=== PATIENT | female | born 1985 | race Caucasian/White ===

== ENCOUNTER 2017-06-26 09:14 | Observation (INO) | payer MEDICAID ==
[~2017-06-26] VITALS: Ht 157.5 cm; Wt 72.7 kg
[~2017-06-26 09:14] MED LIST: ALPR-475 PO; CLON0.5T PO; HYDR200T PO; HYDR2TAB29 PO; MYCO500T3 PO; OMEP-110 PO; ONDA4TAB10 PO; OSTEO BI-FLEX1 EAC1 PO; OXYC10TA6 PO; PRED10TA14 PO; PREG225C PO; PROP20TA PO; TRAM50TA2 PO; TRAZ100T15 PO; flexeril PO
[2017-06-26] MEDS ORDERED: SODIUM CHLORIDE 0.9% 1,000 ML IV ONE (09:56)
[2017-06-26] MEDS ORDERED: SODIUM CHLORIDE FLUSH 10ML SYR IVF ONE (10:00)
[2017-06-26] MEDS ORDERED: ONDANSETRON 2MG/ML, 2ML IVPush ONE (10:00)
[2017-06-26] MEDS ORDERED: HYDROmorphone 2 MG/ML, 1ML ONE ×2 (10:10→13:04)
[2017-06-26] MEDS ORDERED: ONDANSETRON 2MG/ML, 2ML ONE (10:11)
[2017-06-26 10:25] LABS: BASOPHILS # (AUTO) 0.02 x10^3/uL (0-0.1); BASOPHILS % (AUTO) 0 % (0-1); EOSINOPHILS # (AUTO) 0.08 x10^3/uL (0-0.4); EOSINOPHILS % (AUTO) 1 % (1-7); HCT (SEDRATE) 39.7 % (34.6-47.8); LYMPHOCYTES % (AUTO) 21 % (22-44); MD NO; MEAN CORPUSCULAR HEMOGLOBIN 30.2 pg (27.0-34.8); MEAN CORPUSCULAR HGB CONC 33.7 g/dL (32.4-35.8); MEAN CORPUSCULAR VOLUME 89.5 fL (80-100); MEAN PLATELET VOLUME 7.8 fL (7.4-10.4); MONOCYTES # (AUTO) 0.35 x10^3/uL (0.2-0.8); MONOCYTES % (AUTO) 5 % (2-9); NEUTROPHILS # (AUTO) 5.21 x10^3/uL (1.8-6.8); NEUTROPHILS % (AUTO) 73 % (42-75); PLATELET COUNT 415 x10^3/uL (130-400); RED BLOOD COUNT 4.44 x10^6/uL (3.82-5.3); RED CELL DISTRIBUTION WIDTH 13.2 % (9.6-15.2)
[2017-06-26 10:39] LABS: ALANINE AMINOTRANSFERASE 28 U/L (12-78); ALBUMIN 2.9 g/dL (3.4-5.0); ANION GAP 7 mmol/L (5-15); CALCIUM 8.2 mg/dL (8.5-10.1); CHLORIDE 108 mmol/L (98-107); CREATININE 0.61 mg/dL (0.55-1.02)
[2017-06-26] MEDS: HYDROmorphone 1 MG/ML, 1ML IVPush PRN ×2 (10:41→13:14)
[2017-06-26 10:44] LABS: ALKALINE PHOSPHATASE 149 U/L (45-117); BILIRUBIN,TOTAL 0.3 mg/dL (0.2-1.0); TOTAL PROTEIN 6.9 g/dL (6.4-8.2)
[2017-06-26 10:45] LABS: TROPONIN I < 0.015 ng/mL (0.000-0.045)
[2017-06-26 11:13] LABS: SEDIMENTATION RATE 53 mm/hr (0-20)
[2017-06-26 12:00] LABS: MICROSCOPIC NOT IND
[2017-06-26 12:04] LABS: CULTURE INDICATED? NO
[2017-06-26] MEDS ORDERED: POLYETHYLENE GLYCOL 17 GM PACKET PO PRN (14:30)
[2017-06-26] MEDS ORDERED: LABETALOL 5MG/ML, 20ML IVPush PRN (14:30)
[2017-06-26] MEDS ORDERED: HYDROcodone/APAP 5/325 TABLET PO PRN (14:30)
[2017-06-26] MEDS ORDERED: ONDANSETRON ODT 4 MG PO PRN (14:30)
[2017-06-26] MEDS ORDERED: ONDANSETRON 2MG/ML, 2ML IVPush PRN (14:30)
[2017-06-26] MEDS ORDERED: ALBUTEROL SULFATE 2.5 MG/3 ML NPPB PRN (14:30)
[2017-06-26] MEDS ORDERED: HYDROmorphone 2MG TABLET PO PRN (14:30)
[2017-06-26 14:45] LABS: C-REACTIVE PROTEIN, QUANT 0.78 mg/dL (0.02-0.49)
[2017-06-26 14:48] LABS: FREE T4 (FREE THYROXINE) 1.17 ng/dL (0.76-1.46)
[2017-06-26 15:54] VITALS: BP 139/89
[2017-06-26] MEDS: NS + 20MEQ KCL 1,000 ML IV SCH (17:28)
[2017-06-26] MEDS: ENOXAPARIN 40 MG/0.4 ML SQ SCH (17:28)
[2017-06-26 18:17] LABS: RAPID INFLUENZA A Negative (Negative); RAPID INFLUENZA B Negative (Negative)
[2017-06-26] MEDS ORDERED: TRAZ100T15 PO (18:59)
[2017-06-26] MEDS ORDERED: GABA-826 PO (18:59)
[2017-06-26 19:45] VITALS: BP 124/82
[2017-06-26] MEDS ORDERED: MYCOPHENOLATE MOFETIL 200 MG/ML SUSP PO SCH (21:00)
[2017-06-26] MEDS: MYCOPHENOLATE MOFETIL 200 MG/ML SUSP PO SCH (21:08)
[2017-06-26] MEDS: OMEPRAZOLE 20 MG CAPSULE.DR PO SCH (21:10)
[2017-06-26] MEDS: FAMOTIDINE 20 MG/2 ML IVPush SCH (21:11)
[2017-06-26] MEDS: PROPRANOLOL 10 MG TABLET PO SCH (21:12)
[2017-06-26] MEDS ORDERED: ALEN70TA5 PO (22:39)
[2017-06-26] MEDS ORDERED: TIZA4CAP PO (22:39)
[2017-06-27 02:15] VITALS: BP 132/72
[2017-06-27] MEDS: NS + 20MEQ KCL 1,000 ML IV SCH ×2 (02:54→14:51)
[2017-06-27 05:02] LABS: ALANINE AMINOTRANSFERASE 26 U/L (12-78); ALBUMIN 2.7 g/dL (3.4-5.0); ANION GAP 7 mmol/L (5-15); CALCIUM 8.2 mg/dL (8.5-10.1); CHLORIDE 111 mmol/L (98-107); CREATININE 0.62 mg/dL (0.55-1.02)
[2017-06-27 05:04] LABS: ALKALINE PHOSPHATASE 137 U/L (45-117); BILIRUBIN,TOTAL 0.5 mg/dL (0.2-1.0); TOTAL PROTEIN 6.7 g/dL (6.4-8.2)
[2017-06-27 05:05] LABS: BASOPHILS # (AUTO) 0.01 x10^3/uL (0-0.1); BASOPHILS % (AUTO) 0 % (0-1); EOSINOPHILS % (AUTO) 0 % (1-7); LYMPHOCYTES # (AUTO) 0.93 x10^3/uL (1-3.4); LYMPHOCYTES % (AUTO) 22 % (22-44); MD NO; MEAN CORPUSCULAR HEMOGLOBIN 30.2 pg (27.0-34.8); MEAN CORPUSCULAR HGB CONC 33.5 g/dL (32.4-35.8); MEAN CORPUSCULAR VOLUME 90.1 fL (80-100); MEAN PLATELET VOLUME 7.9 fL (7.4-10.4); MONOCYTES # (AUTO) 0.03 x10^3/uL (0.2-0.8); MONOCYTES % (AUTO) 1 % (2-9); NEUTROPHILS # (AUTO) 3.19 x10^3/uL (1.8-6.8); NEUTROPHILS % (AUTO) 77 % (42-75); PLATELET COUNT 415 x10^3/uL (130-400); RED BLOOD COUNT 4.26 x10^6/uL (3.82-5.3); RED CELL DISTRIBUTION WIDTH 13.1 % (9.6-15.2)
[2017-06-27 08:10] VITALS: BP 131/87
[2017-06-27] MEDS: FAMOTIDINE 20 MG/2 ML IVPush SCH (08:52)
[2017-06-27] MEDS: PROPRANOLOL 10 MG TABLET PO SCH (08:53)
[2017-06-27] MEDS: OMEPRAZOLE 20 MG CAPSULE.DR PO SCH (08:53)
[2017-06-27] MEDS: MYCOPHENOLATE MOFETIL 200 MG/ML SUSP PO SCH (08:54)
[2017-06-27] MEDS ORDERED: HYDROXYCHLOROQUINE 200 MG TABLET PO SCH (09:00)
[2017-06-27] MEDS ORDERED: TRAZODONE 100MG TABLET PO SCH (09:00)
[2017-06-27] MEDS ORDERED: SENNA/DOCUSATE TABLET PO SCH (09:00)
[2017-06-27 09:17] LABS: AMPHETAMINE SCREEN, URINE Negative (Negative); BARBITURATE SCREEN, URINE Negative (Negative); BENZODIAZEPINE SCREEN, URINE Negative (Negative); CANNABINOID SCREEN, URINE Negative (Negative); COCAINE SCREEN, URINE Negative (Negative); METHADONE SCREEN, URINE Negative (Negative); OPIATE SCREEN, URINE Positive (Negative)
[2017-06-27] MEDS ORDERED: NEUTRA PHOS K 250 MG TABLET PO SCH (12:30)
[2017-06-27] MEDS ORDERED: PROP60CA PO (14:08)
[2017-06-27] MEDS ORDERED: OMEP-110 PO (14:29)
[2017-06-27] MEDS ORDERED: HYDR200T5 PO (14:29)
[2017-06-27] MEDS ORDERED: MYCO500T3 PO (14:29)
[2017-06-27] MEDS ORDERED: PRED10TA PO (14:29)
[2017-06-27] MEDS: ENOXAPARIN 40 MG/0.4 ML SQ SCH (14:48)
== END 2017-06-27 15:50 | disposition home or self-care (01) ==
LOC: ED 12:07 → INTOOBSV 12:49 → EDIP 12:49 → 3NE 13:41 → 4EST 15:26 → DCLOUNGE 06-27 15:35
PROVIDERS: ADMIT Hospitalist; ATTEND Hospitalist
DX: R07.9 Chest pain, unspecified (principal); D47.3 Essential (hemorrhagic) thrombocythemia; R11.2 Nausea with vomiting, unspecified; E86.0 Dehydration; E66.9 Obesity, unspecified; Z80.0 Family history of malignant neoplasm of digestive organs; F17.210 Nicotine dependence, cigarettes, uncomplicated; Z80.3 Family history of malignant neoplasm of breast; Z80.8 Family history of malignant neoplasm of other organs or systems; Z83.2 Family history of diseases of the blood and blood-forming organs and certain disorders involving the immune mechanism
CPT/HCPCS: 36415; 71275; 80053; 80307; 81003; 83605; 83690; 83735; 84100; 84439; 84484; 84703; 85025; 85651; 86140; 87400; 93005; 93306; 96361; 96365; 96372; 96375; 96376; 99285; G0378; J1170; J1650; J2405; J2930; J3480; J7030; Q0162; 96374; S0028

== ENCOUNTER 2018-03-02 02:23 | Emergency (ER) | payer MEDICAID ==
[~2018-03-02] VITALS: Ht 157.5 cm; Wt 70.0 kg
[~2018-03-02 02:23] MED LIST changes: +ALEN70TA5 PO; +GABA-826 PO; -HYDR200T PO; +HYDR200T5 PO; +HYDR200T72 PO; +PRED10TA PO; +PROP60CA PO; +TIZA4CAP PO; +TRAZ-137 PO; -TRAZ100T15 PO
[2018-03-02] MEDS ORDERED: LORazepam 1MG TABLET ONE (02:37)
[2018-03-02] MEDS ORDERED: LORazepam 1MG TABLET PO ONE (03:00)
[2018-03-02 03:08] LABS: BASOPHILS # (AUTO) 0.02 x10^3/uL (0-0.1); BASOPHILS % (AUTO) 0 % (0-1); EOSINOPHILS % (AUTO) 0 % (1-7); LYMPHOCYTES # (AUTO) 1.49 x10^3/uL (1-3.4); LYMPHOCYTES % (AUTO) 15 % (22-44); MD NO; MEAN CORPUSCULAR HEMOGLOBIN 30.8 pg (27.0-34.8); MEAN CORPUSCULAR HGB CONC 33.3 g/dL (32.4-35.8); MEAN CORPUSCULAR VOLUME 92.3 fL (80-100); MEAN PLATELET VOLUME 8.1 fL (7.4-10.4); MONOCYTES # (AUTO) 0.77 x10^3/uL (0.2-0.8); MONOCYTES % (AUTO) 8 % (2-9); NEUTROPHILS # (AUTO) 7.45 x10^3/uL (1.8-6.8); NEUTROPHILS % (AUTO) 77 % (42-75); PLATELET COUNT 325 x10^3/uL (130-400); RED BLOOD COUNT 4.63 x10^6/uL (3.82-5.3); RED CELL DISTRIBUTION WIDTH 13.7 % (9.6-15.2)
[2018-03-02 03:20] LABS: ALBUMIN 3.5 g/dL (3.4-5.0); ANION GAP 11 mmol/L (5-15); CALCIUM 9.1 mg/dL (8.5-10.1); CHLORIDE 110 mmol/L (98-107); CREATININE 0.59 mg/dL (0.55-1.02)
[2018-03-02 04:22] VITALS: BP 144/90
== END 2018-03-02 04:32 | disposition home or self-care (01) ==
LOC: ED 04:25
DX: F41.1 Generalized anxiety disorder (principal); R55 Syncope and collapse; R51 Headache
CPT/HCPCS: 36415; 70450; 80048; 82040; 84703; 85025; 93005; 99285